=== PATIENT | male | born 1970 | race Caucasian/White ===

== ENCOUNTER → 2018-12-22 | Outpatient (CLI) | payer OTHER | LOC: RAD 16:36 | DX: R06.02 Shortness of breath (principal); R05 Cough ==

== ENCOUNTER 2021-01-25 09:23 | Emergency (ER) | payer OTHER ==
[~2021-01-25] VITALS: Ht 188 cm; Wt 122.5 kg
[2021-01-25] MEDS ORDERED: SERTRALINE HCL100 MG PO (09:35)
[2021-01-25] MEDS ORDERED: PREVACID30 MG PO (09:36)
[2021-01-25 10:12] LABS: BASOPHILS 0.7 % (0.0-2.0); HEMATOCRIT 41.2 % (42.0-52.0); HEMOGLOBIN 14.5 gm/dL (14.0-18.0); LYMPHOCYTES 18.6 % (24.0-44.0); MCH 37.1 pg (26.0-34.0); MCHC 35.3 g/dL (28.0-37.0); MONOCYTES 8.5 % (1.0-8.0); PLATELET COUNT 199 thou/uL (150-400); POLYS 70.2 % (36.0-66.0); RBC 3.92 mil/uL (4.50-6.00); RDW 13.1 % (10.5-14.5); WBC 7.1 thou/uL (4.0-11.0)
[2021-01-25 10:23] LABS: CALCIUM 8.6 mg/dL (8.5-10.1); CREATININE 0.8 mg/dL (0.7-1.3); POTASSIUM 3.7 mmol/L (3.5-5.1)
[2021-01-25 10:25] LABS: PROTIME 10.6 Seconds (9.3-11.4)
[2021-01-25 10:29] LABS: ALBUMIN 3.4 g/dL (3.4-5.0); TOTAL BILIRUBIN 0.6 mg/dL (0.2-1.0); TOTAL PROTEIN 7.2 g/dL (6.4-8.2)
[2021-01-25] MEDS ORDERED: FLEXERIL PO (12:51)
[2021-01-25] MEDS ORDERED: HYDROCODON-ACE1 EAC7 PO (12:51)
[2021-01-25 12:56] VITALS: BP 161/98
== END 2021-01-25 13:11 | disposition home or self-care (01) ==
LOC: ER 09:23
PROVIDERS: Emergency Medicine
DX: S20.211A Contusion of right front wall of thorax, initial encounter (principal); S30.0XXA Contusion of lower back and pelvis, initial encounter; S20.229A Contusion of unspecified back wall of thorax, initial encounter; Z79.899 Other long term (current) drug therapy; Z88.0 Allergy status to penicillin; W18.39XA Other fall on same level, initial encounter; Y93.89 Activity, other specified; Y92.89 Other specified places as the place of occurrence of the external cause; Y99.8 Other external cause status